=== PATIENT | female | born 1985 | race African-American/Black ===

== ENCOUNTER 2020-05-13 01:45 | Emergency (ER) | payer OTHER ==
[~2020-05-13] VITALS: Ht 177.8 cm; Wt 93.0 kg
[~2020-05-13 01:45] MED LIST: ALPRAZOLAM0.25 MG PO; BACTRIM DS TAB1 EACH PO; FLUTICASONE PRO16 GM NAS; IBUPROFEN800 MG PO; MONTELUKAST SOD10 MG PO; NAPROXEN375 MG PO; NORCO 10-325 T1 EACH PO; OMEPRAZOLE20 MG PO; SERTRALINE HCL50 MG PO; TRIAMTERENE-HC1 EAC3 PO; ZYRTEC10 MG PO
[2020-05-13] MEDS ORDERED: HYDROCHLOROTHIA25 MG PO (02:08)
[2020-05-13] MEDS ORDERED: ASHLYNA 0.15-01 EACH PO (02:08)
[2020-05-13] MEDS ORDERED: AMLODIPINE BESYL5 MG PO (02:08)
[2020-05-13] MEDS ORDERED: DOXYCYCLINE HY100 MG PO (03:45)
== END 2020-05-13 04:06 | disposition home or self-care (01) ==
LOC: ED 01:45
DX: J32.1 Chronic frontal sinusitis (principal); J32.2 Chronic ethmoidal sinusitis; J32.3 Chronic sphenoidal sinusitis; I10 Essential (primary) hypertension; G43.909 Migraine, unspecified, not intractable, without status migrainosus; F41.9 Anxiety disorder, unspecified; J45.909 Unspecified asthma, uncomplicated; Z88.0 Allergy status to penicillin; Z88.8 Allergy status to other drugs, medicaments and biological substances; Z79.899 Other long term (current) drug therapy
CPT/HCPCS: 70450; 99284-25

== ENCOUNTER 2020-10-19 11:51 | Emergency (ER) | payer OTHER ==
[~2020-10-19] VITALS: Ht 177.8 cm; Wt 93.0 kg
[~2020-10-19 11:51] MED LIST changes: +AMLODIPINE BESYL5 MG PO; +ASHLYNA 0.15-01 EACH PO; +DOXYCYCLINE HY100 MG PO; +HYDROCHLOROTHIA25 MG PO
[2020-10-19] MEDS ORDERED: ESCITALOPRAM OX10 MG PO (12:08)
[2020-10-19] MEDS ORDERED: LEVONORGESTREL1 EAC2 PO (12:08)
[2020-10-19] MEDS ORDERED: HYDROCODON-ACE1 EA10 PO (13:26)
== END 2020-10-19 13:52 | disposition home or self-care (01) ==
LOC: ED 11:51
DX: S82.54XA Nondisplaced fracture of medial malleolus of right tibia, initial encounter for closed fracture (principal); X50.9XXA Other and unspecified overexertion or strenuous movements or postures, initial encounter; I10 Essential (primary) hypertension; J45.909 Unspecified asthma, uncomplicated; Z88.0 Allergy status to penicillin; Z88.8 Allergy status to other drugs, medicaments and biological substances; Z79.899 Other long term (current) drug therapy
CPT/HCPCS: 73610; 99283-25

== ENCOUNTER 2022-08-26 07:35 | Emergency (ER) | payer OTHER ==
[~2022-08-26 07:35] MED LIST changes: +ESCITALOPRAM OX10 MG PO; +HYDROCODON-ACE1 EA10 PO; +LEVONORGESTREL1 EAC2 PO
--- OUTSIDE RECORDS SUMMARY | 2022-08-26 07:37 | XMS ---
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 Xochitl has no Care Guidelines for this patient. EElie VISIT COUNT (12 MO.) 1 [facility] [place] TOTAL 1 NOTE: Visits indicate total known visits. ED/C VISIT TRACKING (12 MO.) 08/26/2022 07:35 [facility] [place] TYPE: Emergency COMPLAINT: - DIFFICULTY BREATHING INPATIENT VISIT TRACKING (12 MO.) No inpatient visits to display in this time frame [email or web address]
[2022-08-26] MEDS ORDERED: WELLBUTRIN XL150 MG PO (07:53)
[2022-08-26] MEDS ORDERED: PREDNISONE20 MG PO (09:07)
[2022-08-26] MEDS ORDERED: VENTOLIN HFA18 GM INH (09:07)
== END 2022-08-26 09:18 | disposition home or self-care (01) ==
LOC: ED 07:35
DX: J45.901 Unspecified asthma with (acute) exacerbation (principal); J06.9 Acute upper respiratory infection, unspecified; I10 Essential (primary) hypertension; Z88.0 Allergy status to penicillin; Z88.8 Allergy status to other drugs, medicaments and biological substances; Z79.899 Other long term (current) drug therapy; Z20.822 Contact with and (suspected) exposure to COVID-19
CPT/HCPCS: 87502; 94640; 99285-25; C9803; J7512; U0003